=== PATIENT | female | born 1995 | race Caucasian/White ===

== ENCOUNTER 2018-01-04 07:33 | Emergency (ER) | payer MEDICAID ==
[~2018-01-04] VITALS: Ht 167.6 cm; Wt 63.6 kg
[2018-01-04 07:39] VITALS: Ht 167.6 cm; Wt 63.6 kg
[2018-01-04] MEDS ORDERED: LEXAPRO20 MG PO (07:41)
[2018-01-04] MEDS ORDERED: GABAPENTIN100 MG PO (07:42)
[2018-01-04 08:12] LABS: BASOPHILS 0.6 % (0-2); HEMATOCRIT 36.1 % (36.0-48.0); HEMOGLOBIN 12.4 g/dL (12-16); IMMATURE GRANULOCYTES 0.3 % (0-5); MCH 31.6 pg (26.0-34.0); MCHC 34.3 g/dL (31.0-37.0); MCV 92.1 fL (80.0-100.0); MEAN PLATELET VOLUME 11.3 fL (7.4-10.4); MONOCYTES 8.2 % (2-11); NEUTROPHILS 54.9 % (40-80); PLATELET COUNT 251 10x3/uL (130-400); RBC 3.92 10x6/uL (4.00-5.40); RDW 12.7 % (11.5-14.5); WBC 7.2 10x3/uL (4.8-10.8)
[2018-01-04 08:33] LABS: ALBUMIN 3.7 g/dL (3.4-5.0); ALKALINE PHOSPHATASE 65 U/L (46-116); ALT (SGPT) 29 U/L (10-68); BILIRUBIN - TOTAL 0.33 mg/dL (0.2-1.3); CALC OSMOLALITY 276 mosm/kg (275-300); CALCIUM 8.4 mg/dL (8.5-10.1); CARBON DIOXIDE 27.4 mmol/L (21.0-32.0); CHLORIDE - SERUM 105 mmol/L (98-107); CREATININE - SERUM 0.7 mg/dL (0.6-1.3); GLUCOSE 90 mg/dL (74-106); POTASSIUM - SERUM 3.8 mmol/L (3.5-5.1); PROTEIN - SERUM 6.9 g/dL (6.4-8.2); SODIUM 139 mmol/L (136-145); UREA NITROGEN 11 mg/dL (7-18); eGFR NON AFRICAN AMERICAN > 90 mL/min (90-120)
[2018-01-04 08:34] LABS: UDS - AMPHET POSITIVE QUAL (NEGATIVE); UDS - BARB NEGATIVE QUAL (NEGATIVE); UDS - BENZO NEGATIVE QUAL (NEGATIVE); UDS - COCAINE NEGATIVE QUAL (NEGATIVE); UDS - OPIATE NEGATIVE QUAL (NEGATIVE); UDS - PCP NEGATIVE QUAL (NEGATIVE); UDS - THC POSITIVE QUAL (NEGATIVE)
[2018-01-04 08:37] LABS: INR 1.12 (0.85-1.17)
[2018-01-04 08:37] LABS: APPEARANCE CLEAR (CLEAR); COLOR YELLOW (YELLOW)
[2018-01-04 08:38] LABS: APTT 31.4 SECONDS (22.8-39.4)
[2018-01-04 08:38] LABS: BILIRUBIN NEGATIVE (NEGATIVE); GLUCOSE NEGATIVE (NEGATIVE); KETONE NEGATIVE (NEGATIVE); NITRITE NEGATIVE (NEGATIVE); PROTEIN NEGATIVE (NEGATIVE); SPECIFIC GRAVITY 1.005 (1.005-1.020); UROBILINOGEN NORMAL (NORMAL)
[2018-01-04 08:39] LABS: D-DIMER-QUANTITATIVE < 0.27 ug/mLFEU (0.20-0.54)
[2018-01-04 08:39] LABS: BACTERIA NONE SEEN /hpf (NONE SEEN); EPITHELIAL CELLS 0-5 /hpf (0-5); RED CELLS - URINE NONE SEEN /hpf (0-5); WHITE CELLS - URINE 0-5 /hpf (0-5)
[2018-01-04 08:44] LABS: CKMB 1.9 U/L (0.0-3.6); CREATINE KINASE 29 UL (21-215)
[2018-01-04 08:45] LABS: TROPONIN-I < 0.017 ng/mL (0.000-0.060)
[2018-01-04 09:16] LABS: HCG SERUM NEGATIVE (NEGATIVE)
[2018-01-04] MEDS ORDERED: ACETAMINOPHEN500 M1 PO (13:23)
[2018-01-04] MEDS ORDERED: PENICILLIN V P500 MG PO (13:23)
[2018-01-04 13:56] VITALS: BP 121/63
== END 2018-01-04 14:00 | disposition home or self-care (01) ==
LOC: D.ER 07:33
PROVIDERS: Family Medicine
DX: K08.89 Other specified disorders of teeth and supporting structures (principal); G45.9 Transient cerebral ischemic attack, unspecified; G81.94 Hemiplegia, unspecified affecting left nondominant side; R20.2 Paresthesia of skin; F17.200 Nicotine dependence, unspecified, uncomplicated

== ENCOUNTER 2018-03-11 14:51 | Emergency (ER) | payer MEDICAID ==
[~2018-03-11] VITALS: Ht 167.6 cm; Wt 63.2 kg
[~2018-03-11 14:51] MED LIST: ACETAMINOPHEN500 M1 PO; GABAPENTIN100 MG PO; LEXAPRO20 MG PO; PENICILLIN V P500 MG PO
[2018-03-11 15:00] VITALS: Ht 167.6 cm; Wt 63.2 kg
[2018-03-11] MEDS ORDERED: VOLTAREN75 MG PO (16:16)
[2018-03-11] MEDS ORDERED: PREDNISONE20 MG PO (16:16)
[2018-03-12 00:50] VITALS: BP 107/68
== END 2018-03-11 16:45 | disposition home or self-care (01) ==
LOC: D.ER 14:51
DX: S69.91XA Unspecified injury of right wrist, hand and finger(s), initial encounter (principal); W22.01XA Walked into wall, initial encounter; Y93.89 Activity, other specified; Y92.019 Unspecified place in single-family (private) house as the place of occurrence of the external cause; M79.641 Pain in right hand; F17.200 Nicotine dependence, unspecified, uncomplicated

== ENCOUNTER 2018-06-11 16:38 | Emergency (ER) | payer OTHER ==
[~2018-06-11] VITALS: Ht 167.6 cm; Wt 63.6 kg
[~2018-06-11 16:38] MED LIST changes: +PREDNISONE20 MG PO; +VOLTAREN75 MG PO
[2018-06-11 16:50] VITALS: Ht 167.6 cm; Wt 63.6 kg
[2018-06-11] MEDS ORDERED: LIDOCAINE 5 % O35 GM TOPICAL (20:34)
[2018-06-11] MEDS ORDERED: VALTREX1000 MG PO (20:34)
[2018-06-11 20:41] LABS: APPEARANCE CLEAR (CLEAR); COLOR YELLOW (YELLOW)
[2018-06-11 20:42] LABS: BACTERIA MODERATE /hpf (NONE SEEN); BILIRUBIN NEGATIVE (NEGATIVE); EPITHELIAL CELLS 0-5 /hpf (0-5); GLUCOSE NEGATIVE (NEGATIVE); KETONE NEGATIVE (NEGATIVE); NITRITE NEGATIVE (NEGATIVE); PROTEIN NEGATIVE (NEGATIVE); RED CELLS - URINE 0-5 /hpf (0-5); UROBILINOGEN NORMAL (NORMAL); WHITE CELLS - URINE 0-5 /hpf (0-5)
[2018-06-11 21:55] VITALS: BP 122/85
== END 2018-06-11 21:58 | disposition home or self-care (01) ==
LOC: D.ER 16:38
PROVIDERS: Emergency Medicine
DX: N76.5 Ulceration of vagina (principal)

== ENCOUNTER 2019-12-09 14:08 | Emergency (ER) | payer OTHER ==
[~2019-12-09] VITALS: Ht 167.6 cm; Wt 68.2 kg
[~2019-12-09 14:08] MED LIST changes: +LIDOCAINE 5 % O35 GM TOPICAL; +VALTREX1000 MG PO
[2019-12-09 14:17] VITALS: BP 114/64; Ht 167.6 cm; Wt 68.2 kg
[2019-12-09 17:24] LABS: BILIRUBIN NEGATIVE (NEGATIVE); GLUCOSE NEGATIVE (NEGATIVE); KETONE NEGATIVE (NEGATIVE); NITRITE NEGATIVE (NEGATIVE); UROBILINOGEN NORMAL (NORMAL)
[2019-12-09 17:25] LABS: BACTERIA FEW /hpf (NEGATIVE); RED CELLS - URINE >50 /hpf (0-5); WHITE CELLS - URINE 0-5 /hpf (NEGATIVE)
--- NOTE | 2019-12-09 17:26 | NUR ---
DR MONZON NOTIFIED AND REVIEWED PT'S BEHAVIOR AND ASSESSMENT. PATIENT IS A MODERATE RISK DUE TO HER HISTORY BUT DENIES ANY SUICIDAL THOUGHTS OR INTENTIONS AT THIS TIME. DISCUSSED THIS WITH ATTENDING AND HE IS OK WITH HER NOT HAVING A SITTER. RESOURCES GIVEN AND SHE VERBALIZES UNDERSTANDING.
[2019-12-09] MEDS ORDERED: BACTRIM DS TAB1 EAC1 PO (17:30)
== END 2019-12-09 17:36 | disposition home or self-care (01) ==
LOC: D.ER 14:08
PROVIDERS: Family Medicine
DX: N39.0 Urinary tract infection, site not specified (principal); R10.2 Pelvic and perineal pain

== ENCOUNTER → 2020-10-14 16:14 | Outpatient (CLI) | payer OTHER ==
[2019-12-09 14:17] VITALS: BMI 24.2
[~2020-10-14 16:14] MED LIST changes: +BACTRIM DS TAB1 EAC1 PO
== END | disposition home or self-care (01) ==
LOC: D.RAD 16:14
PROVIDERS: ATTEND Psychiatry & Neurology Psychiatry
DX: S09.90XA Unspecified injury of head, initial encounter (principal)